=== PATIENT | male | born 1960 | race Caucasian/White ===

== ENCOUNTER 2016-08-07 16:35 | Emergency (ER) | payer SELFPAY ==
--- NOTE | ~2016-08-07 | CR72 ---
[facility] A Service of [facility] & [facility] / [facility] RADIOLOGY TEXT RESULTS PATIENT: HAYES LAMBERT LOCATION: SED : 64 UNIT #: [id number] AGE: [address]: Bing Geronimo MD SEX: M ORDER DR: [id number] [place] [id number] MR#: [id number] Acc #: [id number] NAME: HAYES LAMBERT. : 1960 SEX: M STUDY DATE/TIME: 08/07/2016 16:37 UNIT: SED ROOM: STUDY DESCRIPTION: CR Chest Single View Portable Attending Physician: Bing Geronimo M.D. Ordering Physician: Bing Geronimo M.D. Primary Care Physician: Lianne Enriquez M.D. MEDICAL IMAGING REPORT This report is preliminary unless electronic signature is present. EXAM Portable chest, 08/07/2016 HISTORY Shortness of air. Cough and wheezing for 1 week. FINDINGS The cardiac size and pulmonary vascularity are normal. No infiltrates or effusions. Mild hyperinflation of both lungs. Tiny calcified granulomas in the lower lungs bilaterally. Small calcified bilateral hilar nodes. IMPRESSION No acute findings and no active disease. Dictated by... Orion Lemus M.D. THIS IS AN ELECTRONICALLY VERIFIED REPORT Orion Lemus M.D. at 08/08/2016 10:47 PM DFL/jackie TD: 08/08/2016 22:21 JOB #: [id number] MEDICAL IMAGING REPORT
[2016-08-07 16:23] LABS: INFLUENZA A NEG (NEG); INFLUENZA B NEG (NEG)
[~2016-08-07 16:35] MED LIST: ALBUTEROL17 GM; ALBUTEROL17 GM INH; ALLERGY MED PO; FLONASE 0.05% N16 G1 INH; IBUPROFEN PO; KEFLEX PO; KEFLEX500 MG PO; LORTAB 5/500 TA1 TA1 PO; PREDNISONE PO; VICODIN 5/500 T1 TAB PO; ZITHROMAX PO; [UNRECOGNIZED DRUG - REMARK]
== END 2016-08-07 18:07 | disposition home or self-care (01) ==
LOC: SED 16:35
PROVIDERS: Student in an Organized Health Care Education/Training Program
DX: J20.9 Acute bronchitis, unspecified (principal); F17.200 Nicotine dependence, unspecified, uncomplicated
CPT/HCPCS: 71010; 87804; 94640; 99284